=== PATIENT | female | born 1980 | race Caucasian/White ===

== ENCOUNTER 2017-01-04 21:53 | Inpatient (IN) | payer OTHER ==
[~2017-01-04] VITALS: Ht 157.5 cm; Wt 92.5 kg
[2017-01-04] MEDS ORDERED: FERR-252 PO (23:16)
[2017-01-04] MEDS ORDERED: LACTATED RINGERS 1,000 ML IV SCH (23:43)
[2017-01-04] MEDS ORDERED: PROMETHAZINE 25 MG/ML VIAL IVP PRN (23:45)
[2017-01-04] MEDS ORDERED: OXYTOCIN 10 UNITS/ML VIAL IM SCH (23:45)
[2017-01-04] MEDS ORDERED: CARBOPROST 250 MCG/ML AMP IM PRN (23:45)
[2017-01-04] MEDS ORDERED: NALBUPHINE HYDROCHLORIDE 10 MG/ML VIAL IVP PRN (23:45)
[2017-01-04] MEDS ORDERED: LACTATED RINGERS 500 ML IV ONE (23:45)
[2017-01-04] MEDS ORDERED: METHYLERGONOVINE 0.2 MG/ML AMP IM PRN (23:45)
[2017-01-04] MEDS ORDERED: OXYTOCIN 20 UNITS in LACTATED RINGERS 1,000 ML IV SCH (23:45)
[2017-01-05 01:35] LABS: BASOPHILS # (AUTO) 0.2 K/uL (0.00-0.22); BASOPHILS % (AUTO) 2.1 % (0.0-2.0); EOSINOPHILS % (AUTO) 0.3 % (0.0-4.0); HEMATOCRIT 32.1 % (36-48); HEMOGLOBIN 10.5 g/dL (12.0-16.0); LYMPHOCYTES # (AUTO) 1.9 K/uL (2.5-16.5); LYMPHOCYTES % (AUTO) 26.9 % (20.5-51.1); MEAN CORPUSCULAR HEMOGLOBIN 30 pg (27-31); MEAN CORPUSCULAR HGB CONC 33 g/dL (33-37); MEAN CORPUSCULAR VOLUME 92 fL (80-94); MONOCYTES # (AUTO) 0.3 K/uL (0.8-1.0); MONOCYTES % (AUTO) 4.7 % (1.7-9.3); NEUTROPHILS # (AUTO) 4.8 K/uL (1.8-7.7); PLATELET COUNT (AUTO) 189 K/uL (140-450); RED BLOOD CELL COUNT(AUTO) 3.48 MIL/uL (4.20-5.40); RED CELL DISTRIBUTION WIDTH 13.3 % (11.6-13.7); WHITE BLOOD COUNT (AUTO) 7.2 K/uL (4.8-10.8)
[2017-01-05 01:39] LABS: BILIRUBIN,URINE NEGATIVE (NEGATIVE); BLOOD, URINE 2+ (NEGATIVE); COLOR,URINE YELLOW (YELLOW); LEUKOCYTE ESTERASE ,URINE NEGATIVE (NEGATIVE); NITRITE, URINE NEGATIVE (NEGATIVE); UGLUCOSE NEGATIVE (NEGATIVE)
[2017-01-05 01:40] LABS: CARBON DIOXIDE 19.7 mmol/L (21-32); CREATININE 0.8 mg/dL (0.6-1.3); POTASSIUM 3.7 mmol/L (3.5-5.1)
[2017-01-05 01:46] LABS: ALBUMIN 2.5 g/dL (3.4-5.0); TOTAL BILIRUBIN 0.3 mg/dL (0.0-1.0)
[2017-01-05 02:02] LABS: APPEARANCE,URINE SLIGHTLY HAZY (CLEAR)
[2017-01-05 02:04] LABS: RBC,URINE 11-20 (MOD) /HPF (0-5); WBC,URINE 0-5 (RARE) /HPF (0-5)
[2017-01-05 03:20] VITALS: BP 121/69
[2017-01-05] MEDS ORDERED: ROPIVACAINE 0.2%/NS PREMIX 250 ML EPI ONE (04:00)
--- NOTE | 2017-01-05 10:03 | NUR ---
PATIENT HAS BEEN SCREENED AND CATEGORIZED LOW NUTRITION RISK. PATIENT WILL BE SEEN WITHIN 7 DAYS OF ADMISSION. 01/11/[address]
[2017-01-05] MEDS ORDERED: OXYTOCIN 10 UNITS/ML VIAL ONE (11:01)
[2017-01-05] MEDS ORDERED: BENZOCAINE/MENTHOL 20%-0.5% 60 GM CAN TP PRN (14:35)
[2017-01-05] MEDS ORDERED: TEMAZEPAM 15 MG CAP PO PRN (14:35)
[2017-01-05] MEDS ORDERED: SODIUM PHOSPHATE 118 ML ENEM RC PRN (14:35)
[2017-01-05] MEDS ORDERED: METHYLERGONOVINE 0.2 MG TAB PO PRN (14:35)
[2017-01-05] MEDS ORDERED: MEASLES, MUMPS, AND RUBELLA 1 VIAL SQVAC PRN (14:35)
[2017-01-05] MEDS ORDERED: OXYTOCIN 10 UNITS/ML VIAL IM PRN (14:35)
[2017-01-05] MEDS ORDERED: METHYLERGONOVINE 0.2 MG/ML AMP IM PRN (14:35)
[2017-01-05] MEDS: HYDROcodone/APAP 5/325 MG 1 TAB TAB PO PRN (18:06)
[2017-01-05] MEDS ORDERED: DOCUSATE SOD/SENNA 50/8.6 MG 1 TAB PO SCH (21:00)
[2017-01-05] MEDS: oxyCODONE/APAP 5/325 MG 1 TAB TAB PO PRN (22:21)
[2017-01-06] MEDS: HYDROcodone/APAP 5/325 MG 1 TAB TAB PO PRN (01:18)
[2017-01-06] MEDS: oxyCODONE/APAP 5/325 MG 1 TAB TAB PO PRN (02:26)
[2017-01-06] MEDS ORDERED: INFLUENZA VIRUS VACCINE QUAD 0.5 ML SYR IMVAC SCH (05:25)
[2017-01-06 06:22] LABS: HEMATOCRIT 29.1 % (36-48); HEMOGLOBIN 9.6 g/dL (12.0-16.0)
[2017-01-06] MEDS ORDERED: HYDROcodone/APAP 5/325 MG 1 TAB TAB PO PRN (07:55)
[2017-01-06] MEDS ORDERED: oxyCODONE/APAP 5/325 MG 1 TAB TAB PO PRN (07:55)
[2017-01-06] MEDS: IBUPROFEN 600 MG TAB PO PRN ×2 (16:37→22:48)
[2017-01-06] MEDS ORDERED: DOCUSATE SOD/SENNA 50/8.6 MG 1 TAB PO SCH (21:00)
[2017-01-07] MEDS: IBUPROFEN 600 MG TAB PO PRN (08:14)
[2017-01-07] MEDS ORDERED: IBUP-2217 PO (10:19)
== END 2017-01-07 21:03 | disposition home or self-care (01) | DRG 560 ==
LOC: MLD 21:53 → OBSVTOIN 23:16 → MFCC 23:40
PROVIDERS: ADMIT Obstetrics & Gynecology; ATTEND Obstetrics & Gynecology
PROC: 10E0XZZ Delivery of Products of Conception, External Approach (ICD-10-PCS; principal; 2017-01-05)
PROC: 10907ZC Drainage of Amniotic Fluid, Therapeutic from Products of Conception, Via Natural or Artificial Opening (ICD-10-PCS; 2017-01-05)
PROC: 3E0S3BZ Introduction of Anesthetic Agent into Epidural Space, Percutaneous Approach (ICD-10-PCS; 2017-01-05)
PROC: 00HU33Z Insertion of Infusion Device into Spinal Canal, Percutaneous Approach (ICD-10-PCS; 2017-01-05)
PROC: 0HQ9XZZ Repair Perineum Skin, External Approach (ICD-10-PCS; 2017-01-05)
DX: O24.429 Gestational diabetes mellitus in childbirth, unspecified control (principal); E66.01 Morbid (severe) obesity due to excess calories; O77.0 Labor and delivery complicated by meconium in amniotic fluid; O70.9 Perineal laceration during delivery, unspecified; O99.214 Obesity complicating childbirth; Z37.0 Single live birth; Z3A.40 40 weeks gestation of pregnancy; Z68.37 Body mass index [BMI] 37.0-37.9, adult
CPT/HCPCS: 36415; 51702; 59409; 80053; 81001; 85018; 85025; 86592; 86886; 86900; 86901; 87086; G0378; J2590; J2795; J7120